=== PATIENT | female | born 1955 | race Caucasian/White ===

== ENCOUNTER 2016-09-13 10:20 | Day surgery (SDC) | payer OTHER ==
[~2016-09-13] VITALS: Ht 165.1 cm; Wt 89.2 kg
[~2016-09-13 10:20] MED LIST: ASPI-664 PO; GLIP5TAB13 PO; HYDR-762 PO; LISI-313 PO; METF1000 PO; PRAV10TA43 PO; TAMS-14 PO
[2016-09-13 11:09] VITALS: Ht 165.1 cm; Wt 89.2 kg
[2016-09-13] MEDS ORDERED: SITA100T8 PO (11:15)
[2016-09-13] MEDS ORDERED: PROPOFOL 40 ML ONE (11:17)
[2016-09-13] MEDS ORDERED: LIDOCAINE 2% (SDV) 5 ML INJ ONE (11:17)
[2016-09-13 11:31] VITALS: BP 125/59; PULSE 71; RESP 20
[2016-09-13 12:30] VITALS: BP 108/64; PULSE 68; RESP 12
--- NOTE | 2016-09-13 12:58 | GILP ---
DATE OF PROCEDURE: NAME OF PROCEDURES: Colonoscopy and biopsy. SURGEON: Black Coyne MD PREOPERATIVE DIAGNOSIS: Screening colonoscopy. POSTOPERATIVE DIAGNOSES 1. Colonoscopy all the way to the cecum. 2. Two small colon polyps were removed using the biopsy forceps. 3. Internal hemorrhoids. INDICATION FOR THE PROCEDURE: Ms. Patria Anton is a 60-year-old female patient who was schedule d for screening colonoscopy. The procedure and possible complications are well explained to the patient, she understood and conse nted to the procedure. DESCRIPTION OF PROCEDURE: Under the influence of anesthesia, the colonoscope was carefully introduc ed in the rectum and under direct vision, it was advanced all the way to the cecum. FINDINGS: The patient had 2 small colon polyps, and they were removed using the biopsy forceps. Sh e had internal hemorrhoids. She tolerated the procedure very well and there was no complication from the procedure. At the end of the procedures, she was awake with stable vital signs, and she was discharged home to the care of her family. IMPRESSION: 1. Colonoscopy all the way to the cecum. 2. Two small colon polyps were removed using the biopsy forceps. 3. Internal hemorrhoids. PLAN: 1. Await histopathology report. 2. Next screening colonoscopy in 10 years. Dictated By: BLACK CUMMINS/CECE Conf#: [id number] DID#: [id number]
== END 2016-09-13 14:24 | disposition home or self-care (01) ==
LOC: GIL 10:20
PROVIDERS: ATTEND Internal Medicine Gastroenterology
DX: Z12.11 Encounter for screening for malignant neoplasm of colon (principal); K63.5 Polyp of colon; K64.8 Other hemorrhoids; I10 Essential (primary) hypertension; E11.9 Type 2 diabetes mellitus without complications; E66.9 Obesity, unspecified; Z68.32 Body mass index [BMI] 32.0-32.9, adult
CPT/HCPCS: 45378; 82962; 88305; Z7610